=== PATIENT | female | born 1945 | race Caucasian/White ===

== ENCOUNTER 2017-02-08 09:54 | Emergency (ER) | payer MEDICARE, BC ==
[~2017-02-08] VITALS: Ht 162.6 cm; Wt 52.0 kg
[~2017-02-08 09:54] MED LIST: BACL10TA PO; DIPH25CA84 PO
[2017-02-08 09:55] VITALS: Ht 162.6 cm; Wt 52.0 kg
--- OUTSIDE RECORDS SUMMARY | 2017-02-08 09:58 | XMS REPORT | Continuity of Care Document ---
Author Author [facility] Organization [facility] Address Unknown Phone Unavailable Support Name Relationship Address Phone TOMAS ALBERTO FACS, MD Caregiver [address] [place] [address] [address], [facility]114 [phone] VASHTI CARTER MD Caregiver [address] [place] [address] [place] [address] [phone] FERCHO VEDA Tay Next Of Kin [address] [place] [address] Insurance Providers Payer Name Policy Number Subscriber Name Relationship Medicare [id number] Sonja Curtis 19 Self [facility] [id number] Sonja Curtis 19 Self Advance Directives Directive Response Recorded Date/Time Dr Mcelroy Resuscitation Status Full Code 09/06/14 4:26pm Problems No known problems or medical conditions. Medications No known medications. Social History Social History Problem Response Recorded Date/Time Chewing Tobacco Status No 09/07/2014 7:16am Hx Substance Use No 09/07/2014 7:16am Hx Alcohol Use No 09/07/2014 7:16am Query Response Start Date Stop Date Smoking Status Never smoker Hospital Discharge Instructions No hospital discharge instructions. Plan of Care No plan of care. Functional Status No functional status results. Allergies, Adverse Reactions, Alerts Allergen Type Severity Reaction Status Last Updated Amoxicillin Allergy Unknown Active 01/17/09 Immunizations Name Given Type Hx Influenza Vaccination No Historical Hx Pneumococcal Vaccination No Historical Hx Influenza Vaccination No Historical Vital Signs Acute Vital Signs Vital Response Date/Time Temperature (Fahrenheit) 97.2 deg F (96.8 - 99.1) Temperature (Calculated Celsius) 36.47058 degrees C (36.0 - 37.3) Temperature Source Temporal Pulse Rate (adult) 70 bpm (60 - 100) Respiratory Rate 16 breaths/min (10 - 20) O2 Sat by Pulse Oximetry 99 % (90 - 100) Oxygen Delivery Method Room Air Blood Pressure 130/75 mm Hg Blood Pressure Source Automatic Cuff Height 5 ft 4 in Weight 114 lb Body Mass Index 19.0 kg/m^2 Results No known relevant diagnostic tests, laboratory data and/or discharge summary. Procedures Procedure Status Date Provider(s) Colonoscopy completed 09/07/14 TOMAS ALBERTO MD, FACS, CWS
[2017-02-08] MEDS ORDERED: CALC-52 PO (10:05)
[2017-02-08] MEDS ORDERED: CHOL100055 PO (10:05)
[2017-02-08] MEDS ORDERED: VITA1TAB21 PO (10:06)
--- OUTSIDE RECORDS SUMMARY | 2017-02-08 10:20 | XMS REPORT | Continuity of Care Document ---
Author Author [facility] Organization [facility] Address Unknown Phone Unavailable Support Name Relationship Address Phone TOMAS ALBERTO FACS, MD Caregiver [address] [place] [address] [address] ALTAMIR[place]O, [facility]114 [phone] VASHTI CARTER MD Caregiver [address] [place] [address] [place] [address] [phone] FERCHO VEDA Tay Next Of Kin [address] [place] [address] Insurance Providers Payer Name Policy Number Subscriber Name Relationship Medicare [id number] Sonja Curtis 19 Self [facility] [id number] Sonja Curtis 19 Self Advance Directives Directive [...] F (96.8 - 99.1) Temperature (Calculated Celsius) 36.35363 degrees C (36.0 - 37.3) Temperature Source [...]
--- OUTSIDE RECORDS SUMMARY | 2017-02-08 10:20 | XMS REPORT | Continuity of Care Document ---
Author Author [facility] Organization [facility] Address Unknown Phone Unavailable Care Team Providers Care Compliance Field Technician Name Role Phone VASHTI CARTER MD Primary Care Physician [phone] Insurance Providers Guarantor KirstenRj Lopez Address [address] [id number] Email DENIED/NO TO PT [facility] Policy Number [id number] Subscriber's Name Rj Curtis Relationship 18 Self Group Number [id number] Effective Date 08 Payer Medicare Policy Number [id number] Subscriber's Name Rj Curtis Relationship 19 Self Chief Complaint and Reason for Visit Chief Complaint Skin Rash/Abscess/Injury Reason for Visit [id number] Problems Past Problems Medical Problem Onset Date Intercostal myalgia Unknown Spider bite allergy, current reaction Unknown Medications Current Home Medications Medication Dose Units Route Directions Days Qty Instructions Start Date Baclofen 10 Mg Tablet 10 Mg Oral Three Times A Day 30 Tablet Diphenhydramine Hcl (Benadryl) 25 Mg Capsule 25 Mg Oral Bedtime 02/18/16 Social History Social History Problem Response Recorded Date/Time Onset Date Status Hx Substance Use No 02/18/2016 5:41pm Not Applicable Not Applicable Hx Alcohol Use No 02/18/2016 5:41pm Not Applicable Not Applicable Tobacco Usage none 02/18/2016 6:01pm Not Applicable Not Applicable Hospital Discharge Instructions No hospital discharge instructions. Plan of Care Discharge Date 02/08/17 9:40am Disposition 01 DISCHARGED HOME, SELF-CARE Condition at Discharge Stable Prescriptions See Medication Section Referrals VASHTI CARTER MD Address: [address] [place] [address] [address] [place]AM[place]O, SHAYY [phone] Additional Instructions/Education Please go to the ER for further evaluation and treatment. Functional Status No functional status results. Allergies, Adverse Reactions, Alerts Allergen Type Severity Reaction Status Last Updated Amoxicillin Allergy Unknown Active 02/08/17 Immunizations Query Response on File Recorded Date/Time Hx Influenza Vaccination No 09/07/14 7:16am Hx Pneumococcal Vaccination No 09/07/14 7:16am Hx Influenza Vaccination No 09/07/14 7:16am Influenza Vaccine Hx NO 02/08/17 9:25am Vital Signs Acute Vital Signs Vital Response Date/Time Temperature (Fahrenheit) 97.0 deg F (96.8 - 99.1) 02/08/2017 9:18am Temperature (Calculated Celsius) 36.14006 degrees C (36.0 - 37.3) 02/08/2017 9:18am Pulse Rate (adult) 63 bpm (60 - 100) 02/08/2017 9:18am Blood Pressure 145/63 mm Hg 02/08/2017 9:18am Height (Feet) 5 feet 02/08/2017 9:18am Height (Inches) 4.00 inches 02/08/2017 9:18am Weight (Kilograms) 53.300 kg 02/08/2017 9:18am Body Mass Index (BMI) 20.0 02/08/2017 9:18am Results No known relevant diagnostic tests, laboratory data and/or discharge summary. Procedures No known history of procedures. Encounters Encounter Location Arrival/Admit Date Discharge/Depart Date Attending Provider Departed Emergency Room [facility] 02/08/17 9:07am 02/08/17 9: 40am DIANA BARKER APRN Recent Diagnosis
[2017-02-08 10:38] LABS: BASOPHILS % (AUTO) 0.2 % (0-2); EOSINOPHILS # (AUTO) 0.4 T/MM3 (0-0.5); EOSINOPHILS % (AUTO) 6.8 % (0-4); HCT - HEMATOCRIT 38.6 % (36-46); HGB - HEMOGLOBIN 13.1 GM/DL (12-16); IMMATURE GRANULOCYTE # (AUTO) 0.01 T/MM3 (0.00-0.03); IMMATURE GRANULOCYTE % (AUTO) 0.2 % (0.0-0.5); LYMPHOCYTES # (AUTO) 0.7 T/MM3 (1-4.8); LYMPHOCYTES % (AUTO) 11.6 % (23-45); MEAN CORPUSCULAR HGB 29.2 UUG (26-34); MEAN CORPUSCULAR HGB CONC(MCHC 33.9 GM/DL (31-37); MEAN CORPUSCULAR VOLUME 86.2 UM3 (80-100); MEAN PLATELET VOLUME 10.3 UM3 (9.4-12.4); MONOCYTES # (AUTO) 0.5 T/MM3 (0-0.8); MONOCYTES % (AUTO) 7.6 % (0-9.0); NEUTROPHILS #(AUTO)-ABSOLUTE 4.4 T/MM3 (1.8-7.7); NEUTROPHILS % (AUTO) 73.6 % (33-66); RED BLOOD COUNT 4.48 M/MM3 (4.00-5.20)
[2017-02-08 10:44] LABS: LACTATE - LACTIC ACID 1.7 MMOL/L (0.6-2.2)
[2017-02-08 10:45] LABS: ALBUMIN 4.4 G/DL (3.5-5.0); ALBUMIN/GLOBULIN RATIO 1.8 RATIO (1.1-2.2); ALKALINE PHOSPHATASE 82 U/L (38-126); ALT (SGPT) 27 U/L (9-52); ANION GAP 10 MEQ/L (5-15); AST (SGOT) 20 U/L (14-36); BUN/CREATININE RATIO 20 RATIO (6-26); CALCIUM 9.8 MG/DL (8.4-10.2); CHLORIDE 104 MEQ/L (98-107); CO2 - CARBON DIOXIDE 30 MEQ/L (22-30); CREATININE 0.7 MG/DL (0.7-1.2); GLOMERULAR FILTRATION RATE 83; GLUCOSE 112 MG/DL (65-110); SODIUM 144 MEQ/L (134-144); TOTAL PROTEIN 6.8 G/DL (6.3-8.2)
--- NOTE | 2017-02-08 11:32 | ERPDOC ---
Departure Disposition Decision Date: February 08, 2017 Disposition Decision Time: 12:27 Disposition: 01 DISCHARGED HOME, SELF-CARE Impression Impression Impression: Primary Impression: Spider bite Encounter type: initial encounter Injury intent: undetermined intent Qualified Codes: T63.304A - Toxic effect of unspecified spider venom, undetermined, initial encounter Severity: Moderate Condition: Improved Seen By: Physician only Referrals: VASHTI CARTER MD (Family) 1 Day Patient Instructions: Brown Estefanylu Spider Bite (ED) Problems/Meds/Labs Reviewed?: Yes Medications reviewed and manag: Yes Follow up care ordered?: Yes Mental Status: Alert, Oriented Scripts Sulfamethoxazole/Trimethoprim (Bactrim Ds Tablet) 1 Each Tablet 2 TAB PO BID for 10 Days, #40 TAB 0 Refills Prov: SHELLIE JOHN DO 02/08/17 HPI - General Medical General Chief Complaint: Skin Rash/Abscess Stated Complaint: SPIDER BITE-LT SHOULDER Time Seen by Provider: 09:59 Source: patient Exam Limitations: no limitations HPI - General Medical Initial Comments 71-year-old female presents to emergency department with a chief complaint of a spider bite. Patient was seen and evaluated in convenient care earlier today and referred to the emergency Department. Patient actually saw the spider on her scan and felt that biter and brushed it off. This occurred approximately 3 days ago. Patient denies any pain or discomfort. She notes a local reaction to the spider bite. She does not note any exacerbating or remitting factors. No other complaints or associated symptoms. Patient does not feel ill. She has not been suffering from any fever, nausea, vomiting, diarrhea or other systemic symptoms. Occurred At: home Onset: Gradual Allergies: Coded Allergies: amoxicillin (Verified Allergy, Unknown, 02/08/17) Past History Past Medical History Pt denies signifigant [facility] Surgical History Denies Surgeries General: colonoscopy Family History Family History: Negative Vaccines Hx Influenza Vaccination: No Hx Pneumococcal Vaccination: No Social History Smoking Status: Never smoker Substance Use Type: does not use Alcohol Intake: none Review of Systems Constitutional Constitutional: DENIES: chills, fever Eyes General: DENIES: erythema, exudate Lids/Accessories: DENIES: erythema, swelling Vision: DENIES: acuity, blurring ENMT Ears: DENIES: drainage, erythema Hearing: DENIES: hearing loss Balance: DENIES: ataxia, falling to one side Sinuses: DENIES: congestion, pain Nose: DENIES: pain Mouth/Throat: DENIES: painful swallowing, sore throat Teeth: DENIES: pain Jaw: DENIES: pain Cardiovascular Cardiac: DENIES: chest pain, dyspnea on exertion Rhythm/Rate: DENIES: irregular beat, palpitations Vascular: DENIES: pedal edema, unilateral swelling Pulmonary Respiratory: DENIES: cough, dyspnea, pleuritic chest pain, sputum GI Upper Abdomen: DENIES: nausea, pain, vomiting Lower Abdomen: DENIES: diarrhea, pain General: DENIES: burning, dysuria, frequency, urgency Musculoskeletal General: DENIES: joint pain, tenderness Integumentary Skin: other (Spider Bite), DENIES: itching, rash Neurological General: DENIES: change in strength, headache, numbness, weakness Psychiatric Psychiatric: DENIES: emotional instability, suicidal ideation/attempt Endocrine Endocrine: DENIES: polydipsia, polyphagia Hematologic/Lymphatic Hematologic/Lymphatic: DENIES: frequent nosebleeds, lymphadenopathy Allergic/Immunological Allergic/Immunoligical: DENIES: allergic reactions, hives Physical Exam General General Nourishment: well nourished, well developed, appears stated age, no acute distress, adult General Body Habitus: well groomed Vitals and Pain First Documented Vital Signs Date Time Temp Pulse Resp B/P Pulse Ox O2 Delivery O2 Flow Rate FiO2 02/08/17 09:55 98.0 67 18 191/81 100 Room Air Weight: Kilograms: 52.000 Height (feet): 5 Height (inches): 4.00 Triage Pain Scale: RN VS reviewed by Provider: Yes Normal Exams: Head: Normocephalic w/o trauma Eyes: Pupils are PERRLA w/ EOMI, No scleral icterus, irritation, or foreign bodies noted ENMT: No facial trauma, nasal exudates, pharyngeal erythema, or exudates are noted Dental: No fractured, loose, or missing teeth noted Neck: Full range of motion, without adenopathy, JVD, bruits or thyromegaly Chest/Resp: Clear all elder, with good airflow, and symmetry bilaterally CV: Regular rate and rhythm, without murmur or gallop, Pulses 2+ all extremities, capillary refill, <2 seconds all ext., no pedal edema noted Abdomen: Bowel sounds positive, soft, non-tender, non-distended, no hepatosplenomegaly, masses or bruits noted Lymphatic: No lymphadenopathy, or lymphedema noted Musculoskeletal: No tenderness, or deformity noted, good range of motion, all extremities Integumentary: No rashes, hives, or bruising noted, hair and nails, without abnormality Neurologic: Patient is alert, and oriented, cranial nerves, motor/sensory/ cerebellar, exams w/o gross deficits, to observation Psychiatric: Patient exhibits, appropriate attention, emotion and affect Integumentary (brief) Comments Area consistent with spider bite and localized reaction noted to left shoulder. No extensive cellulitis or lymphangitis. No abscess. No local lymphadenopathy in the axillary region. Patient also has a petechial rash over bilateral lower extremities. Differential Diagnoses Considering: Medication Effect, Metabolic, Other (Spider bite, systemic reaction) Progress Results/Orders Orders Procedure Category Date Status Time Cbc W/Auto LAB 02/08/17 Complete Diff-Reflex Manual Cmp - Comprehensive LAB 02/08/17 Complete Metabolic Lactate - Lactic Acid LAB 02/08/17 Complete Procalcitonin LAB 02/08/17 Complete 10:07 Blood Culture RUY 02/08/17 In Process 10:07 Iv Lock (Ed Only) EDM 02/08/17 Transmitted 10:07 Shoulder Left 2-3 RAD 02/08/17 Resulted Views 10:26 Sulfamethoxazole/Trimethoprim PHA 02/08/17 Complete (Bactrim D 12:30 Lab Results Laboratory Tests Test 02/08/17 10:25 02/08/17 10:32 Turbidity < 20 Sodium Level 144MEQ/L Potassium Level 4.0MEQ/L Chloride Level 104MEQ/L Carbon Dioxide Level 30MEQ/L Anion Gap 10MEQ/L Blood Urea Nitrogen 14.0MG/DL Creatinine 0.7MG/DL Glomerular Filtration Rate Calc 83 BUN/Creatinine Ratio 20RATIO Glucose Level 112MG/DL Calculated Osmolality 279MOSM/KG Calcium Level 9.8MG/DL Total Bilirubin 0.80MG/DL Icterus Index < 2 Aspartate Amino Transf (AST/SGOT) 20U/L Alanine Aminotransferase (ALT/SGPT) 27U/L Alkaline Phosphatase 82U/L Total Protein 6.8G/DL Albumin 4.4G/DL Globulin 2.4G/DL Albumin/Globulin Ratio 1.8RATIO Plasma Lactate 1.7MMOL/L Procalcitonin < 0.05NG/ML Chemistry Specimen Hemolysis < 15 White Blood Count 6.0T/MM3 Red Blood Count 4.48M/MM3 Hemoglobin 13.1GM/DL Hematocrit 38.6% Mean Corpuscular Volume 86.2UM3 Mean Corpuscular Hemoglobin 29.2UUG Mean Corpuscular Hemoglobin Concent 33.9GM/DL RDW Standard Deviation 38.8FL Platelet Count 165T/MM3 Mean Platelet Volume 10.3UM3 Immature Granulocyte % (Auto) 0.2% Neutrophils (%) (Auto) 73.6% Lymphocytes (%) (Auto) 11.6% Monocytes (%) (Auto) 7.6% Eosinophils (%) (Auto) 6.8% Basophils (%) (Auto) 0.2% Absolute Immature Granulocyte (auto 0.01T/MM3 Absolute Neutrophils (auto) 4.4T/MM3 Absolute Lymphocytes (auto) 0.7T/MM3 Absolute Monocytes (auto) 0.5T/MM3 Absolute Eosinophils (auto) 0.4T/MM3 Absolute Basophils (auto) 0.0T/MM3 Medications Current ED Medications Trimethoprim/ Sulfamethoxazole (Bactrim Ds) 2 tab ONE TIME PO Last administered on 02/08/17t 11:40; Start 02/08/17 at 12:30; Stop 02/08/17 at 13:10 ; Status DC Progress Progress Labs / imaging were discussed in detail with the patient and questions are answered. Patient's laboratory evaluation is unremarkable. Imaging is unremarkable. Patient has normal vital signs. The hospitalist Dr. Anthony is consulted and comes to the ED to evaluate the patient. His recommendation is for a trial of outpatient therapy with 2 double strength Bactrim tablets twice a day for 10 days. Patient is to follow-up with her physician in one day. She is to return to the emergency Department if her condition worsens or changes in any manner. Strict return precautions are provided. Patient verbalizes agreement and understanding. She is in agreement with the current plan of management. She is discharged home in improved condition. She is to follow up as instructed. Prescription for Bactrim DS is provided. Patient declines offered analgesic pain medication in the emergency department. Patient is nontoxic in appearance and has an unremarkable evaluation. Xray Xray : Xray: Shoulder L Interpretation: Normal, Reviewed Written Report SHELLIE JOHN DO February 08, 2017 11:31
--- NOTE | 2017-02-08 11:32 | DI ---
Indication: ITS.REASON: cellulitis PROCEDURE: SHOULDER LEFT 2-3 VIEWS: Encounter: Initial Comparison: None Findings: There is no acute fracture, dislocation or malalignment identified. Impression: No acute osseous abnormality. .
--- NOTE | 2017-02-08 11:40 | NUR ---
DISMISS INSTRUCTIONS REVIEWED AND GIVEN TO PATIENT VERBALIZED UNDERSTANDING RX GIVEN AMBULATES TO EXIT IN NO DISTRESS
--- NOTE | 2017-02-08 12:17 | NUR ---
STATUS PATIENT RESTING IN BED. NO DISTRESS NOTED
[2017-02-08] MEDS ORDERED: SULF1TAB42 PO (12:28)
[2017-02-08] MEDS ORDERED: SULFAMETHOXAZOLE/TMP 800mg/160mg TABLET PO SCH (12:30)
[2017-02-08 12:43] VITALS: BP 158/72; PULSE 67; RESP 18; TEMP 98; O2SAT 100
== END 2017-02-08 11:40 | disposition home or self-care (01) ==
LOC: ED 09:54
DX: T63.304A Toxic effect of unspecified spider venom, undetermined, initial encounter (principal); Y92.009 Unspecified place in unspecified non-institutional (private) residence as the place of occurrence of the external cause
CPT/HCPCS: 36000; 36415; 73030; 80053; 83605; 84145; 85025; 87040; 99284; A9270